=== PATIENT | male | born 1990 | race Caucasian/White ===

== ENCOUNTER 2016-10-30 00:57 | Emergency (ER) | payer OTHER ==
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
[~2016-10-30 00:57] MED LIST: AMOXICILLIN500 M1 PO; DENTAL BALLS TOP; IBUPROFEN800 MG PO; NO MEDICATIONS; PEN VK PO; PEN-VEE K PO
== END 2016-10-30 02:04 | disposition home or self-care (01) ==
LOC: CED 00:57
DX: S93.402A Sprain of unspecified ligament of left ankle, initial encounter (principal); S46.912A Strain of unspecified muscle, fascia and tendon at shoulder and upper arm level, left arm, initial encounter; F17.210 Nicotine dependence, cigarettes, uncomplicated; V89.9XXA Person injured in unspecified vehicle accident, initial encounter; Y92.410 Unspecified street and highway as the place of occurrence of the external cause
CPT/HCPCS: 29540; 73030; 73610; 96372; 99284; J1885